=== PATIENT | female | born 1985 | race American Indian/Alaskan Native ===

== ENCOUNTER 2017-09-22 20:46 | Emergency (ER) | payer OTHER ==
[2017-09-22 21:53] VITALS: BP 132/82
--- NOTE | 2017-09-23 02:37 | Emergency Department Report ---
HPI - General Chief Complaint: Sore Throat Time Seen by Provider: 09/23/17 02:32 - HPI HPI: 32-year-old -Portuguese female comes in for a platelet for throat 2 days. She also reports she's had a cough for 2 days as well. Patient reports that she has not taken any medication for pain or cough. She has no past medical history currently takes no medication and has no known drug allergies. ED Past Medical Hx - Past Medical History Previous Medical History?: No - Surgical History Past Surgical History?: No - Social History Smoking Status: Never Smoker Substance Use Type: None - Medications Home Medications: Home Medications Medication Instructions Recorded Confirmed Last Taken Type No Known Home Medications [No 09/22/17 09/22/17 Unknown History Reported Home Medications] ED Review of Systems ROS: Stated complaint: SORE THROAT Other details as noted in HPI Constitutional: denies: chills, fever Eyes: denies: eye pain, eye discharge, vision change ENT: throat pain Respiratory: cough Cardiovascular: denies: chest pain, palpitations Endocrine: no symptoms reported Gastrointestinal: denies: abdominal pain, nausea, diarrhea Genitourinary: denies: urgency, dysuria, discharge Musculoskeletal: denies: back pain, joint swelling, arthralgia Skin: denies: rash, lesions Neurological: denies: headache, weakness, paresthesias Psychiatric: denies: anxiety, depression Hematological/Lymphatic: denies: easy bleeding, easy bruising Physical Exam - Physical Exam Vital Signs: Vital Signs 09/22/17 21:50 Temperature 97.7 F Pulse Rate 98 H Respiratory 16 Rate Blood Pressure 132/82 O2 Sat by Pulse 99 Oximetry Physical Exam: GENERAL: Alert and oriented x3, no apparent distress, Normal Gait, atraumatic. HEAD: Head is normocephalic and a-traumatic. EYES: Extra ocular muscles are intact. Pupils are equal, round, and reactive to light and accommodation. EARS: symetrical, atraumatic, non tender, ear canal clear and moderate cerumen, tympanic membrance non inflamed. gross auditory nml bilaterally. NOSE: Nose symetrical, Nontender,Nares appeared normal. MOUTH:Mouth is well hydrated and without lesions. Tonsils nonerythematous or swollen, Uvula midline, Tongue not elevated. Mucous membranes are moist. Posterior pharynx clear, no exudate or lesions. Patent airways. NECK: Supple. Non edematous, No carotid bruits. No lymphadenopathy or thyromegaly. LUNGS: Symetrical with respiration, No wheezing, no rales or crackles, CTAB. HEART: S1, S2 present, regular rate and rhythm without murmur, no rubs, no gallops. EXTREMITIES/MUSCULOSKELETAL: No cyanosis, clubbing, rash, lesions or edema. Full ROM bilaterally. UE/LE Pulses 2+ bilaterally. LE and UE 5+ strength bilaterally NEUROLOGIC: No focal Deficit, Cranial nerves II through XII are grossly intact. No loss of sensation, No facial droop, PSYCHIATRIC: Mood is congruent with affect, SKIN: Warm and dry, No lesions, No ulceration or induration present ED Course Vital Signs 09/22/17 21:50 Temperature 97.7 F Pulse Rate 98 H Respiratory 16 Rate Blood Pressure 132/82 O2 Sat by Pulse 99 Oximetry ED Medical Decision Making - Medical Decision Making This patient has been evaluated by this provider in fast track. Patient had a negative strep throat. Patient has not tried any [id number] medications for pain or cough. I recommended patient to take Tylenol or Motrin over-the- counter Robitussin. Patient verbalizes understanding. Critical care attestation.: If time is entered above; I have spent that time in minutes in the direct care of this critically ill patient, excluding procedure time. ED Disposition Clinical Impression: Sore throat, Cough Disposition: DC-01 TO HOME OR SELFCARE Is pt being admited?: No Does the pt Need Aspirin: No Condition: Stable Instructions: Acetaminophen/Dextromethorphan (By mouth) Additional Instructions: You can take Tylenol or Motrin for ear pain. You can take [id number] Robitussin DM for cough. Follow up with her primary care provider symptoms persist or gets worse. Referrals: BEULAH MOHAN MD [Primary Care Provider] - 3-5 Days [facility] [Provider Group] - 3-5 Days Forms: Work/School Release Form(ED)
[2017-09-23] MEDS ORDERED: MOTRIN PO ONE (02:39)
== END 2017-09-23 02:54 | disposition home or self-care (01) ==
LOC: ED 20:46
DX: J02.9 Acute pharyngitis, unspecified (principal)
CPT/HCPCS: 87116; 87430; 99282

== ENCOUNTER 2017-11-12 22:10 | Emergency (ER) | payer SELFPAY ==
[2017-11-12] MEDS ORDERED: DUONEB *Not for PRN Use IH ONE ×3 (22:17→22:33)
[2017-11-12 22:26] VITALS: BP 132/78
--- NOTE | 2017-11-13 00:12 | XRay Report ---
FINAL REPORT PROCEDURE: XR CHEST ROUTINE 2V TECHNIQUE: PA and lateral chest radiographs were obtained. CPT 04458 HISTORY: MICHAEL. COMPARISON: No prior studies are available for comparison. FINDINGS: Heart: Normal. Mediastinum/Vessels: Normal. Lungs/Pleural space: Subtle peribronchial thickening and reticulonodular opacities throughout the lungs. Artifact overlies the upper thorax. Bony thorax: No acute osseous abnormality. Other: Tubing about the right medial thorax. May represent ventriculoperitoneal shunt tubing. It appears somewhat lateral for central venous catheter. Recommend clinical correlation. IMPRESSION: Subtle peribronchial thickening and reticulonodular opacities throughout the lungs, consider pneumonitis/bronchitis. Recommend radiographic followup if there is concern for subtle underlying pulmonary nodules. Evaluation is also limited by artifact, may be related to patient's hair. Tubing about the right medial thorax. May be overlying patient or represent ventriculoperitoneal shunt tubing. It appears somewhat lateral for central venous catheter. Recommend clinical correlation.
== END 2017-11-12 23:00 | disposition left against medical advice (07) ==
LOC: ED 22:10
DX: R06.00 Dyspnea, unspecified (principal); Z53.21 Procedure and treatment not carried out due to patient leaving prior to being seen by health care provider
CPT/HCPCS: 71046; 94640

== ENCOUNTER 2017-12-22 21:03 | Emergency (ER) | payer OTHER ==
[2017-12-22] MEDS ORDERED: MOTRIN PO ONE (22:38)
[2017-12-22 23:09] LABS: Bacteria,Urine 1+ /HPF (Negative); Bilirubin,Urine NEG (Negative); Blood,Urine SM (Negative); Color,Urine Yellow (Yellow); Mucus,Urine 2+ /HPF; Protein,Urine <15 mg/dL mg/dL (Negative)
[2017-12-22 23:40] LABS: Basophils # (Auto) 0.1 K/mm3 (0.0-0.1); Basophils % (Auto) 1.2 % (0.0-1.8); Eosinophils # (Auto) 0.3 K/mm3 (0.0-0.4); Eosinophils % (Auto) 3.9 % (0.0-4.3); Hematocrit 42.9 % (30.3-42.9); Hemoglobin 14.4 gm/dl (10.1-14.3); Lymphocytes # (Auto) 2.9 K/mm3 (1.2-5.4); Lymphocytes % (Auto) 37.2 % (13.4-35.0); Mean Corpuscular HGB Conc 34 % (30-34); Mean Corpuscular Hemoglobin 30 pg (28-32); Mean Corpuscular Volume 88 fl (79-97); Monocytes # (Auto) 0.6 K/mm3 (0.0-0.8); Monocytes % (Auto) 7.3 % (0.0-7.3); Platelet Count 336 K/mm3 (140-440); Red Blood Count 4.86 M/mm3 (3.65-5.03); Red Cell Distribution Width 13.3 % (13.2-15.2)
[2017-12-23 00:01] LABS: BUN/Creatinine Ratio 11; Blood Urea Nitrogen 9 mg/dL (7-17); Calcium 9.2 mg/dL (8.4-10.2); Hemolysis Index 5
[2017-12-23 03:24] LABS: HCG Qualitative,Urine Negative (Negative)
[2017-12-23 03:47] VITALS: BP 125/82
--- NOTE | 2017-12-23 04:06 | Cat Scan Report ---
FINAL REPORT EXAM: CT HEAD/BRAIN WO CON HISTORY: delgado TECHNIQUE: Routine axial imaging was obtained of the brain without IV contrast. There are no previous studies available for comparison. FINDINGS: There is no evidence of acute stroke or hemorrhage. There is a right-sided parietal shunt catheter coursing with the tip in the frontal horn of the right lateral ventricle. There is no evidence of hydrocephalus. There are no extra-axial fluid collections. There are extensive dural calcifications in the brain. The sinuses reveal minimal mucosal thickening in the right sphenoid sinus. The mastoid air cells are well pneumatized. IMPRESSION: No acute intracranial process.
--- NOTE | 2017-12-23 04:20 | Emergency Department Report ---
ED Headache HPI - General Chief Complaint: Headache Stated Complaint: HAND PAIN Time Seen by Provider: 12/23/17 00:26 - History of Present Illness Initial Comments: Patient here for evaluation of headache patient has a history of [employer] shunt she denies fever or stiff neck she denies nausea vomiting she does get occasional intermittent headaches today she's had a occasional headache past history was negative For [employer] shunt Timing/Duration: 1 week Quality: mild, moderate Head Injury Location: frontal Recent Head Trauma: no recent headache/trauma, frequent headaches, chronic headaches Associated Symptoms: denies symptoms. denies: confusion, fatigue, facial pain, fever/chills, flushing, loss of consciousness, nausea/vomiting, nasal congestion , nasal drainage, numbness in legs/feet, rash, seizures, sinus infection, stiff neck, vision changes, weakness Allergies/Adverse Reactions: Allergies latex Allergy (Verified 09/22/17 21:54) Unknown Home Medications: Ambulatory Orders Ibuprofen [Motrin] 600 mg PO Q8H PRN #15 tablet 12/23/17 ED Review of Systems ROS: Stated complaint: HAND PAIN Other details as noted in HPI Comment: All other systems reviewed and negative Constitutional: denies: diaphoresis, fever, malaise Eyes: denies: eye discharge, vision change ENT: denies: dental pain, hearing loss, epistaxis Respiratory: denies: shortness of breath, SOB with exertion, SOB at rest, stridor Cardiovascular: denies: chest pain, palpitations, dyspnea on exertion, orthopnea , edema, syncope Gastrointestinal: denies: abdominal pain, nausea, vomiting, diarrhea, constipation, hematemesis, melena, hematochezia Neurological: headache. 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 - Social History Smoking Status: Never Smoker Substance Use Type: None - Medications Home Medications: Home Medications Medication Instructions Recorded Confirmed Last Taken Type Ibuprofen [Motrin] 600 mg PO Q8H PRN #15 tablet 12/23/17 Unknown Rx ED Physical Exam - General Limitations: No Limitations General appearance: alert, in no apparent distress, anxious - Head Head exam: Present: atraumatic, normocephalic - Eye Eye exam: Present: PERRL, EOMI - ENT ENT exam: Present: normal exam, normal orophraynx - Neck Neck exam: Present: normal inspection. Absent: tenderness, meningismus - Respiratory Respiratory exam: Present: normal lung sounds bilaterally. Absent: respiratory distress, wheezes, rales, rhonchi, stridor, chest wall tenderness, accessory muscle use, decreased breath sounds, prolonged expiratory - Cardiovascular Cardiovascular Exam: Present: regular rate, normal rhythm - GI/Abdominal GI/Abdominal exam: Present: soft. Absent: distended, tenderness, guarding, rebound, rigid, mass, pulsatile mass - Back Exam Back exam: Present: normal inspection, CVA tenderness (L). Absent: muscle spasm , paraspinal tenderness, vertebral tenderness - Neurological Exam Neurological exam: Present: alert, oriented X3, CN II-XII intact. Absent: motor sensory deficit - Skin Skin exam: Present: warm. Absent: cyanosis, diaphoretic, erythema, urticaria, vesicles, petechiae, pallor, abrasion ED Course Vital Signs 12/22/17 12/22/17 12/23/17 21:33 22:30 03:30 Temperature 98.1 F 98.1 F 98.8 F Pulse Rate 87 85 73 Respiratory 18 18 20 Rate Blood Pressure 133/80 133/80 125/82 O2 Sat by Pulse 95 98 99 Oximetry ED Medical Decision Making - Lab Data Result diagrams: 12/22/17 23:11 12/22/17 23:11 - Radiology Data Radiology results: report reviewed - Medical Decision Making CT was resulted na signs are stable no nausea vomiting abdomen soft benign no stiff neck no fever no rash sudden onset of exertional headache process. She had no midline shift. She had no hydrocephalus. Patient's headache is resolved in the ED she is stable for outpatient follow-up Critical care attestation.: If time is entered above; I have spent that time in minutes in the direct care of this critically ill patient, excluding procedure time. ED Disposition Clinical Impression: Headache Disposition: - TO HOME OR SELFCARE Is pt being admited?: No Condition: Stable Instructions: Acute Headache (ED) Additional Instructions: Return of neurologic alarming symptoms see the doctor list for your regular doctor Prescriptions: Ibuprofen [Motrin] 600 mg PO Q8H PRN #15 tablet PRN Reason: Pain Referrals: LYRIC BULL MD [Primary Care Provider] - 3-5 Days Time of Disposition: 04:20
== END 2017-12-23 04:25 | disposition home or self-care (01) ==
LOC: ED 21:03
DX: R51 Headache (principal); J45.909 Unspecified asthma, uncomplicated
CPT/HCPCS: 36415; 70450; 80048; 81001; 81025; 82962; 85025